=== PATIENT | male | born 1990 | race Caucasian/White ===

== ENCOUNTER 2018-03-05 12:49 | Emergency (ER) | payer OTHER ==
[~2018-03-05] VITALS: Ht 188 cm; Wt 104.3 kg
[~2018-03-05 12:49] MED LIST: AMOX500 PO; AZIT250 PO; Amoxicillin500 MG PO; Augmentin 500-1 EACH PO; Bactrim Ds Tab1 EACH PO; CEPH500 PO; CHLGLU.12S MT; CLIN300 PO; CYCL10 PO; Cleocin HCl300 MG PO; DIVA500EC; Flagyl500 MG PO; HYDACE5 PO; HYDACE5325 PO; HYDR-86 PO; IBUP400 PO; IBUP600 PO; IBUP800 PO; NAPR500 PO; Norco 5-325 Ta1 EACH PO; OXYACE5T PO; PENVK500 PO; PROACE100 PO; PROM25 PO; PSEU120ER PO; SULTRIDS PO; SULTRISS PO; TRAM50 PO; Ultram50 MG PO; Vibramycin100 MG PO
[2018-03-05] MEDS ORDERED: IBUP600 PO (13:39)
[2018-03-05] MEDS ORDERED: Norco 5-325 Ta1 EACH PO (13:39)
== END 2018-03-05 13:40 | disposition home or self-care (01) ==
LOC: ER 12:49
DX: S43.101A Unspecified dislocation of right acromioclavicular joint, initial encounter (principal); F17.210 Nicotine dependence, cigarettes, uncomplicated; Z88.5 Allergy status to narcotic agent; V00.131A Fall from skateboard, initial encounter; Y92.828 Other wilderness area as the place of occurrence of the external cause
CPT/HCPCS: 73030; 99283

== ENCOUNTER → 2019-08-01 | Outpatient (CLI) | payer OTHER ==
[~2019-08-01] MED LIST changes: +Augmentin 875-1 EACH PO; +VARE1 PO
[2019-08-06 02:06] LABS: CHLAMYDIA BY NAA Negative (Negative); GONOCOCCUS BY NAA Negative (Negative); TRICH VAG BY NAA Negative (Negative)
== END ==
LOC: LAB EV 15:43 → LAB SHORT 15:43
PROVIDERS: Nurse Practitioner
DX: R30.0 Dysuria (principal)
CPT/HCPCS: 87491; 87591; 87661

== ENCOUNTER → 2019-09-04 | Outpatient (CLI) | payer OTHER ==
[2019-09-10 08:08] LABS: COTININE 10.3 ng/mL (.); NICOTINE None Detected (.)
== END | disposition home or self-care (01) ==
LOC: LAB 12:17 → LAB SHORT 12:17
PROVIDERS: Surgery
DX: F17.200 Nicotine dependence, unspecified, uncomplicated (principal)
CPT/HCPCS: G0480

== ENCOUNTER 2019-10-28 09:37 | Day surgery (SDC) | payer OTHER ==
[~2019-10-28] VITALS: Ht 188 cm; Wt 122.7 kg
[2019-10-28] MEDS ORDERED: TERB250 PO (10:11)
--- NOTE | 2019-10-28 11:15 | NUR ---
10/28/19 1114 Evelyn BethKari INTERSCALENE BLOCK PERFORMED IN PRE-OP WITH DR. BAR. 1101: TIMEOUT 1104: SITE CHECK 1105: PROCEDURE START 1111: PROCEDURE END PULSE OX ON THROUGHOUT PROCEDURE, VS STABLE, PT TOLERATED WELL, NO ISSUES OR COMPLICATIONS. VS POST-PROCEDURE: 117/65, 52BPM, 16RR, 96%.
== END 2019-10-28 14:59 | disposition home or self-care (01) ==
LOC: ORSCSDS 09:37
PROVIDERS: Orthopaedic Surgery
PROC: 0PB94ZZ Excision of Right Clavicle, Percutaneous Endoscopic Approach (ICD-10-PCS; principal; 2019-10-28 11:30)
PROC: 0RNJ4ZZ Release Right Shoulder Joint, Percutaneous Endoscopic Approach (ICD-10-PCS; principal; 2019-10-28 11:30)
PROC: 0LS14ZZ Reposition Right Shoulder Tendon, Percutaneous Endoscopic Approach (ICD-10-PCS; principal; 2019-10-28 11:30)
PROC: 0LQ14ZZ Repair Right Shoulder Tendon, Percutaneous Endoscopic Approach (ICD-10-PCS; principal; 2019-10-28 11:30)
DX: M19.011 Primary osteoarthritis, right shoulder (principal); M75.111 Incomplete rotator cuff tear or rupture of right shoulder, not specified as traumatic; S43.101A Unspecified dislocation of right acromioclavicular joint, initial encounter; M75.41 Impingement syndrome of right shoulder; M75.21 Bicipital tendinitis, right shoulder; M25.511 Pain in right shoulder
CPT/HCPCS: C1713; C1762; J0171; J0690; J1100; J1885; J2250; J2405; J2704; J3010; J7120

== ENCOUNTER 2023-12-21 06:03 | Day surgery (SDC) | payer BC, OTHER ==
[~2023-12-21] VITALS: Ht 188 cm; Wt 131.5 kg
[~2023-12-21 06:03] MED LIST changes: +TERB250 PO
[2023-12-21 06:35] VITALS: BP 128/68
--- NOTE | 2023-12-21 06:49 | NUR ---
History, Chart, Medications and Allergies reviewed before start of procedure. Lungs clear T/O to Auscultation. Patient confirms NPO status and agrees with scheduled surgery. Pre-Op teaching done. Pt verbalizes understanding. Patient States Post-Procedure ride home has been arranged. PT REPORT COLON PRES IS COULTER WITH SEDIMENTS BUT NO SOLIDS.
--- NOTE | 2023-12-21 07:27 | NUR ---
12/21/23 0727 Serene Thurman Patient confirms NPO status and agrees with scheduled surgery. O2 VIA N/C INTACT THROUGHOUT SEDATION/PROCEDURE. See Anesthesia record FROM DR. ARRIAZA
[2023-12-21 08:20] VITALS: BP 115/73
--- NOTE | 2023-12-21 08:20 | NUR ---
PT TO DAY SURGERY STEP DOWN AFTER EGD AND COLONOSCOPY. PT IS SLEEPY, BUT ORIENTED AND ABLE TO MOVE SELF IN BED. VSS. PT HAS NO COMPLAINTS. PT RIDE IS SET UP.
--- NOTE | 2023-12-21 08:30 | NUR ---
PT DECLINES PO FLUIDS.
--- NOTE | 2023-12-21 08:31 | NUR ---
Discharge instructions reviewed with patient. Patient verbalizes understanding. Copy given to patient to take home.
[2023-12-21 08:34] VITALS: BP 122/75
--- NOTE | 2023-12-21 08:40 | NUR ---
Patient up to Ambulate independently. Gait steady. Up to bathroom.
== END 2023-12-21 08:45 | disposition home or self-care (01) ==
LOC: ORSCMMR 06:03 → ORD 07:30 → ORSCMMR 07:30
PROVIDERS: Surgery
PROC: 0DB68ZX Excision of Stomach, Via Natural or Artificial Opening Endoscopic, Diagnostic (ICD-10-PCS; principal; 2023-12-21 07:30)
PROC: 0DB48ZX Excision of Esophagogastric Junction, Via Natural or Artificial Opening Endoscopic, Diagnostic (ICD-10-PCS; principal; 2023-12-21 07:30)
PROC: 0DBN8ZX Excision of Sigmoid Colon, Via Natural or Artificial Opening Endoscopic, Diagnostic (ICD-10-PCS; principal; 2023-12-21 07:30)
DX: K62.5 Hemorrhage of anus and rectum (principal); D12.5 Benign neoplasm of sigmoid colon; K29.70 Gastritis, unspecified, without bleeding; K21.9 Gastro-esophageal reflux disease without esophagitis; L02.31 Cutaneous abscess of buttock; F32.A Depression, unspecified; F41.9 Anxiety disorder, unspecified; E78.5 Hyperlipidemia, unspecified; Z87.891 Personal history of nicotine dependence
CPT/HCPCS: 88305; 88342; J2250; J2704; J3010; J7120